=== PATIENT | male | born 1960 | race Caucasian/White ===

== ENCOUNTER 2020-01-09 18:32 | Emergency (ER) | payer OTHER ==
[~2020-01-09] VITALS: Ht 182.9 cm; Wt 113.0 kg
[2020-01-09] MEDS ORDERED: ALLO300T PO (19:06)
[2020-01-09] MEDS ORDERED: BENA40TA3 PO (19:06)
[2020-01-09] MEDS ORDERED: AMLO10TA8 PO (19:07)
[2020-01-09] MEDS ORDERED: ALPR0.5T7 PO (19:07)
[2020-01-09] MEDS ORDERED: DIPH,PERTUSS(ACELL),TET VAC/PF 0.5 ML IM-VACC ONE ×2 (19:24→19:30)
[2020-01-09] MEDS ORDERED: LIDOCAINE 1%-EPI 1:100K, 20ML ONE (19:24)
--- NOTE | 2020-01-09 19:28 | NUR ---
ASSUMED CARE FROM NOÉ GUZMAN. PT JUST RETURNED FROM IMAGING. PER , PT HAS BEEN DRINKING "HALF A BOTTLE" OF WHISKEY DAILY AND "ABOUT 6 BEERS A NIGHT" NAD NOTED IN PT AT THIS TIME. LIDO AND IRRIGATION SET UP AT BEDSIDE.
[2020-01-09 19:29] LABS: MEAN CORPUSCULAR HEMOGLOBIN 41.5 pg (27.5-34.5); MEAN CORPUSCULAR HGB CONC 34.3 g/dL (33.2-36.2); MEAN CORPUSCULAR VOLUME 120.9 fL (81-97); MEAN PLATELET VOLUME 7.7 fL (7.4-10.4); PLATELET COUNT 147 x10^3/uL (130-400); RED BLOOD COUNT 2.89 x10^6/uL (4.38-5.82); RED CELL DISTRIBUTION WIDTH 14.3 % (9.4-14.8)
[2020-01-09] MEDS ORDERED: SODIUM CHLORIDE 0.9% 1,000ML IVBOLUS ONE (19:30)
[2020-01-09] MEDS ORDERED: LIDOCAINE 1%-EPI 1:100K, 20ML SQ ONE (19:30)
[2020-01-09 19:31] LABS: BASOPHILS # (AUTO) 0.03 x10^3/uL (0-0.1); BASOPHILS % (AUTO) 1 % (0-1); EOSINOPHILS # (AUTO) 0.07 x10^3/uL (0-0.4); EOSINOPHILS % (AUTO) 1 % (1-7); LYMPHOCYTES # (AUTO) 1.41 x10^3/uL (1-3.4); LYMPHOCYTES % (AUTO) 25 % (22-44); MD MORPH REVIEW ONLY; MONOCYTES # (AUTO) 0.42 x10^3/uL (0.2-0.8); MONOCYTES % (AUTO) 8 % (2-9); NEUTROPHILS # (AUTO) 3.65 x10^3/uL (1.8-6.8)
[2020-01-09 19:34] LABS: ALBUMIN 2.9 g/dL (3.4-5.0); ANION GAP 16 mmol/L (5-15); CHLORIDE 95 mmol/L (98-107)
[2020-01-09 19:43] LABS: <PLATELET ESTIMATE> ADEQUATE; <PLT MORPHOLOGY> NORMAL PLT MORPH; ANISOCYTOSIS 1+; NEUTROPHILS % (AUTO) 65 % (42-75)
[2020-01-09] MEDS ORDERED: SODIUM CHLORIDE 0.9%, 500ML IVBOLUS ONE (20:30)
--- NOTE | 2020-01-09 20:59 | NUR ---
ANGY HICKMAN AT BEDSIDE FOR LAC REPAIR. PLAN FOR DC FOLLOWING FRANCIE. REPORT TO NOÉ MO.
[2020-01-09] MEDS ORDERED: NEOSPORIN OINT. PKT 1 PACKET ONE (21:18)
[2020-01-09 21:27] VITALS: BP 105/59
== END 2020-01-09 21:36 | disposition home or self-care (01) ==
LOC: ED 20:38
DX: S01.01XA Laceration without foreign body of scalp, initial encounter (principal); S06.9X1A Unspecified intracranial injury with loss of consciousness of 30 minutes or less, initial encounter; E86.0 Dehydration; I10 Essential (primary) hypertension; X58.XXXA Exposure to other specified factors, initial encounter; Y93.89 Activity, other specified; Y92.89 Other specified places as the place of occurrence of the external cause; Y99.8 Other external cause status
CPT/HCPCS: 12034; 36415; 70450; 80048; 82040; 85025; 90471; 90715; 93005; 96360; 96361; 99285; J7030

== ENCOUNTER 2020-03-03 15:49 | Outpatient (CLI) | payer OTHER ==
[~2020-03-03 15:49] MED LIST changes: +AMLO-211 PO; -AMLO10TA8 PO; -GADOTERATE 7.5 MMOL/15 ML VIAL ONE
== END 2020-03-03 23:59 | disposition home or self-care (01) ==
LOC: RAD 15:49
PROVIDERS: ATTEND Family Medicine
DX: Z02.9 Encounter for administrative examinations, unspecified (principal)

== ENCOUNTER → 2020-03-03 | Outpatient (CLI) | payer OTHER ==
[~2020-03-03] MED LIST: ALLO300T PO; ALPR0.5T7 PO; AMLO10TA8 PO; BENA40TA3 PO; GADOTERATE 7.5 MMOL/15 ML VIAL ONE
== END | disposition home or self-care (01) ==
LOC: RAD 16:05
PROVIDERS: ATTEND Family Medicine
DX: S06.2X9D Diffuse traumatic brain injury with loss of consciousness of unspecified duration, subsequent encounter (principal); S06.6X0D Traumatic subarachnoid hemorrhage without loss of consciousness, subsequent encounter; R26.81 Unsteadiness on feet; R41.0 Disorientation, unspecified; G31.89 Other specified degenerative diseases of nervous system; X58.XXXD Exposure to other specified factors, subsequent encounter
CPT/HCPCS: 70553; A9575

== ENCOUNTER → 2020-03-19 | Outpatient (CLI) | payer OTHER | END | disposition home or self-care (01) | LOC: RAD 09:01 | PROVIDERS: ATTEND Family Medicine | DX: R18.8 Other ascites (principal); N28.1 Cyst of kidney, acquired; R74.8 Abnormal levels of other serum enzymes | CPT/HCPCS: 76700 ==

== ENCOUNTER 2020-04-04 12:10 | Inpatient (IN) | payer OTHER ==
[~2020-04-04] VITALS: Ht 182.9 cm; Wt 128.6 kg
[2020-04-04] MEDS ORDERED: ONDANSETRON 2MG/ML, 2ML ONE (12:52)
[2020-04-04] MEDS ORDERED: MORPHINE SULFATE 4 MG/ML, 1ML ONE ×2 (12:53→16:52)
--- NOTE | 2020-04-04 12:56 | NUR ---
MEDICATED PER EMAR FOR PAIN/NAUSEA AT 10
[2020-04-04 13:02] LABS: BASOPHILS % (AUTO) 1 % (0-1); EOSINOPHILS % (AUTO) 0 % (1-7); LYMPHOCYTES % (AUTO) 6 % (22-44); MEAN CORPUSCULAR HEMOGLOBIN 41.8 pg (27.5-34.5); MEAN CORPUSCULAR HGB CONC 34.7 g/dL (33.2-36.2); MEAN PLATELET VOLUME 8.9 fL (7.4-10.4); MONOCYTES % (AUTO) 5 % (2-9); NEUTROPHILS % (AUTO) 87 % (42-75); PLATELET COUNT 116 x10^3/uL (130-400); RED BLOOD COUNT 2.21 x10^6/uL (4.38-5.82); RED CELL DISTRIBUTION WIDTH 14.5 % (9.4-14.8)
[2020-04-04 13:06] LABS: ALANINE AMINOTRANSFERASE 55 U/L (12-78); ALBUMIN 2.3 g/dL (3.4-5.0); ANION GAP 17 mmol/L (5-15); CALCIUM 6.6 mg/dL (8.5-10.1); CHLORIDE 94 mmol/L (98-107)
--- NOTE | 2020-04-04 13:06 | NUR ---
ecg and ultrasound at bedside
[2020-04-04 13:10] LABS: ALKALINE PHOSPHATASE 67 U/L (45-117); BILIRUBIN,TOTAL 0.8 mg/dL (0.2-1.0); TROPONIN I < 0.015 ng/mL (0.000-0.045)
[2020-04-04 13:30] LABS: MD SCAN
[2020-04-04 13:30] LABS: MICROSCOPIC AUTO
[2020-04-04] MEDS ORDERED: ONDANSETRON 2MG/ML, 2ML IVPush ONE (13:30)
[2020-04-04] MEDS ORDERED: MORPHINE SULFATE 4 MG/ML, 1ML IVPush PRN (13:30)
--- NOTE | 2020-04-04 13:30 | NUR ---
lab called to notify writer technical publications that bun 103-provider made aware- to admin 500ml of ems provider liter of normal saline
[2020-04-04] MEDS ORDERED: LEVO25TA4 PO (13:54)
[2020-04-04] MEDS ORDERED: BENA40TA3 PO (13:54)
[2020-04-04] MEDS ORDERED: CHOL10003 PO (13:54)
[2020-04-04] MEDS ORDERED: SPIR25TA5 PO (13:54)
--- NOTE | 2020-04-04 14:49 | NUR ---
RENAL ULTRASOUND AT BEDSIDE PROVIDED WITH ICE CHIPS PER PROVIDER WITH REPEAT ASSESSMENT- ALERT ORIENTED/PLEASANT. BLOOD PRESSURE SLIGHTLY IMPROVED TO SBP 100-110
[2020-04-04] MEDS ORDERED: SODIUM BICARBONATE 8.4% 150 MEQ in DEXTROSE 5% 1,000 ML IV SCH (15:30)
--- NOTE | 2020-04-04 16:14 | NUR ---
VOIDED 800ML OF DARK/SEDIMENTED URINE
[2020-04-04] MEDS ORDERED: ONDANSETRON 2MG/ML, 2ML IVPush PRN (16:30)
[2020-04-04] MEDS ORDERED: ONDANSETRON ODT 4 MG PO PRN (16:30)
[2020-04-04] MEDS ORDERED: HEPARIN 5,000 UNITS/ML, 1ML ONE (16:52)
[2020-04-04 17:01] LABS: HCT (SEDRATE) 26.6 % (39.2-51.8)
--- NOTE | 2020-04-04 17:09 | NUR ---
NEPHROLOGY AT BEDSIDE- Shakeel CEJA
[2020-04-04] MEDS: SODIUM BICARBONATE 8.4% 150 MEQ in DEXTROSE 5% 1,000 ML IV SCH (17:14)
[2020-04-04] MEDS: HEPARIN 5,000 UNITS/ML, 1ML SQ SCH (17:15)
[2020-04-04] MEDS: MORPHINE SULFATE 4 MG/ML, 1ML IVPush PRN (17:16)
[2020-04-04] MEDS ORDERED: PHARMACY MAY ADJ FOR RENAL FX MC PRN (17:30)
[2020-04-04] MEDS ORDERED: AMPICILLIN/SULBACTAM 3 GM in SODIUM CHLORIDE 0.9% 100 ML IV SCH (17:30)
--- NOTE | 2020-04-04 17:41 | NUR ---
MOVED TO HOSPITAL BED DIET ORDERED PER NEPHROLOGY
--- NOTE | 2020-04-04 17:55 | NUR ---
LAB AT BEDSIDE FOR LBLOOD CULTURES
--- NOTE | 2020-04-04 17:55 | NUR ---
UP TO COMMODE-VOIDED 100ML
[2020-04-04 18:21] LABS: ANION GAP 16 mmol/L (5-15); CALCIUM 6.7 mg/dL (8.5-10.1); CHLORIDE 95 mmol/L (98-107)
[2020-04-04] MEDS ORDERED: VITA1TAB19 PO (20:03)
[2020-04-04] MEDS ORDERED: ERGO500017 PO (20:12)
[2020-04-04 20:32] LABS: CHLORIDE,URINE RANDOM 65 mmol/L; POTASSIUM,URINE RANDOM 19 mmol/L; SODIUM,URINE RANDOM 70 mmol/L
[2020-04-04 20:47] LABS: CREATININE,URINE RANDOM 53.6 mg/dL
[2020-04-04 20:52] VITALS: BP 115/74
[2020-04-04] MEDS: AMPICILLIN/SULBACTAM 3 GM in SODIUM CHLORIDE 0.9% 100 ML IV SCH (20:55)
[2020-04-05 01:27] VITALS: BP 98/60
[2020-04-05] MEDS: HEPARIN 5,000 UNITS/ML, 1ML SQ SCH ×5 (01:37→23:16)
[2020-04-05] MEDS: SODIUM BICARBONATE 8.4% 150 MEQ in DEXTROSE 5% 1,000 ML IV SCH ×3 (02:35→21:05)
[2020-04-05 06:27] LABS: BASOPHILS % (AUTO) 1 % (0-1); EOSINOPHILS % (AUTO) 1 % (1-7); LYMPHOCYTES % (AUTO) 10 % (22-44); MEAN CORPUSCULAR HGB CONC 34.8 g/dL (33.2-36.2); MEAN PLATELET VOLUME 8.8 fL (7.4-10.4); MONOCYTES % (AUTO) 5 % (2-9); NEUTROPHILS % (AUTO) 83 % (42-75); PLATELET COUNT 100 x10^3/uL (130-400); RED BLOOD COUNT 1.81 x10^6/uL (4.38-5.82); RED CELL DISTRIBUTION WIDTH 14.4 % (9.4-14.8)
[2020-04-05 06:34] VITALS: BP 88/60
[2020-04-05 06:34] LABS: ALANINE AMINOTRANSFERASE 46 U/L (12-78); ALBUMIN 2.1 g/dL (3.4-5.0); ANION GAP 13 mmol/L (5-15); CALCIUM 6.5 mg/dL (8.5-10.1); CHLORIDE 94 mmol/L (98-107)
[2020-04-05 06:39] VITALS: BP 92/69
[2020-04-05 06:46] LABS: % IRON SATURATION 94 % (20-55); ALKALINE PHOSPHATASE 57 U/L (45-117); BILIRUBIN,TOTAL 0.7 mg/dL (0.2-1.0); CHOL/HDL RATIO 3.5; CHOLESTEROL, TOTAL 53 mg/dL (140-239); CREATINE KINASE, TOTAL 71 U/L (39-308); HDL CHOL % 28 % (26-37); HDL CHOLESTEROL (DIRECT) 15 mg/dL (40-60); IRON LEVEL 97 mcg/dL (65-175); LDL CHOLESTEROL,CALCULATED 30 mg/dL (54-169); TOTAL IRON BINDING CAPACITY 103 mcg/dL (250-450); TOTAL PROTEIN 6.2 g/dL (6.4-8.2); TRIGLYCERIDES 39 mg/dL (50-200); VLDL CHOLESTEROL 8 mg/dL (0-25)
[2020-04-05 07:11] LABS: MD SCAN
[2020-04-05] MEDS: LEVOTHYROXINE 25 MCG TABLET PO SCH (08:40)
[2020-04-05] MEDS: CHOLECALCIFEROL 1,000 UNIT TABLET PO SCH (08:40)
[2020-04-05] MEDS ORDERED: MAGNESIUM SULFATE PMX 2GM/50ML 50 ML IV ONE (10:00)
[2020-04-05 13:55] VITALS: BP 103/65
[2020-04-05] MEDS: AMPICILLIN/SULBACTAM 3 GM in SODIUM CHLORIDE 0.9% 100 ML IV SCH (20:09)
[2020-04-05 20:12] VITALS: BP 91/54
[2020-04-05] MEDS ORDERED: NICOTINE 7 MG/24 HR PATCH.TD24 TD SCH (21:30)
[2020-04-05] MEDS: SODIUM CHLORIDE 0.9% 1,000 ML IV SCH (23:30)
[2020-04-06 00:20] VITALS: BP 95/55
[2020-04-06 06:17] LABS: ANION GAP 18 mmol/L (5-15); CALCIUM 6.7 mg/dL (8.5-10.1); CHLORIDE 92 mmol/L (98-107)
[2020-04-06 06:23] LABS: INTERNATIONAL NORMALIZED RATIO 1.4 (0.93-1.1); PROTHROMBIN TIME 14.8 Seconds (9.6-11.5)
[2020-04-06 06:58] VITALS: BP 96/56
[2020-04-06 07:18] LABS: BASOPHILS % (AUTO) 0 % (0-1); EOSINOPHILS % (AUTO) 1 % (1-7); LYMPHOCYTES % (AUTO) 7 % (22-44); MEAN CORPUSCULAR HEMOGLOBIN 41.7 pg (27.5-34.5); MEAN CORPUSCULAR HGB CONC 34.2 g/dL (33.2-36.2); MEAN PLATELET VOLUME 8.5 fL (7.4-10.4); MONOCYTES % (AUTO) 6 % (2-9); NEUTROPHILS % (AUTO) 86 % (42-75); PLATELET COUNT 98 x10^3/uL (130-400); RED BLOOD COUNT 1.87 x10^6/uL (4.38-5.82); RED CELL DISTRIBUTION WIDTH 14.4 % (9.4-14.8)
[2020-04-06 07:38] LABS: MD SCAN
[2020-04-06] MEDS: LEVOTHYROXINE 25 MCG TABLET PO SCH (09:06)
[2020-04-06] MEDS: MORPHINE SULFATE 4 MG/ML, 1ML IVPush PRN (09:54)
[2020-04-06] MEDS: CHOLECALCIFEROL 1,000 UNIT TABLET PO SCH (09:55)
[2020-04-06] MEDS: DOCUSATE 100 MG CAPSULE PO SCH ×2 (10:30→21:04)
[2020-04-06] MEDS: NICOTINE 14MG/24 HR PATCH.TD24 TD SCH (11:45)
[2020-04-06 12:08] VITALS: BP 97/64
[2020-04-06] MEDS: SODIUM CHLORIDE 0.9% 1,000 ML IV SCH (12:50)
[2020-04-06] MEDS ORDERED: ALBUMIN HUMAN 25% 50 ML IV PRN (14:00)
[2020-04-06] MEDS ORDERED: ALBUMIN HUMAN 25% 100 ML IV PRN (14:00)
[2020-04-06] MEDS: HEPARIN 5,000 UNITS/ML, 1ML SQ SCH (17:00)
[2020-04-06 20:01] VITALS: BP 110/70
[2020-04-06] MEDS: MIDODRINE 2.5 MG TABLET PO SCH (21:04)
[2020-04-06] MEDS: AMPICILLIN/SULBACTAM 3 GM in SODIUM CHLORIDE 0.9% 100 ML IV SCH (21:05)
[2020-04-07] MEDS: HEPARIN 5,000 UNITS/ML, 1ML SQ SCH ×3 (00:40→16:43)
[2020-04-07 01:18] VITALS: BP 88/52
[2020-04-07 04:30] VITALS: BP 112/69
[2020-04-07 04:57] LABS: BASOPHILS % (AUTO) 0 % (0-1); EOSINOPHILS % (AUTO) 1 % (1-7); LYMPHOCYTES % (AUTO) 7 % (22-44); MEAN CORPUSCULAR HEMOGLOBIN 41.4 pg (27.5-34.5); MEAN PLATELET VOLUME 8.8 fL (7.4-10.4); MONOCYTES % (AUTO) 8 % (2-9); NEUTROPHILS % (AUTO) 84 % (42-75); PLATELET COUNT 85 x10^3/uL (130-400); RED BLOOD COUNT 1.72 x10^6/uL (4.38-5.82); RED CELL DISTRIBUTION WIDTH 14.5 % (9.4-14.8)
[2020-04-07 05:08] LABS: ANION GAP 13 mmol/L (5-15); CALCIUM 6.9 mg/dL (8.5-10.1); CHLORIDE 94 mmol/L (98-107)
[2020-04-07 06:16] VITALS: BP 130/80
[2020-04-07 06:36] LABS: MD NO
[2020-04-07] MEDS: DOCUSATE 100 MG CAPSULE PO SCH ×2 (07:55→21:35)
[2020-04-07] MEDS: LEVOTHYROXINE 25 MCG TABLET PO SCH (07:55)
[2020-04-07] MEDS: CHOLECALCIFEROL 1,000 UNIT TABLET PO SCH (07:55)
[2020-04-07 10:47] VITALS: BP 93/56
[2020-04-07] MEDS: NICOTINE 14MG/24 HR PATCH.TD24 TD SCH (10:48)
[2020-04-07] MEDS: MIDODRINE 2.5 MG TABLET PO SCH ×2 (10:48→21:35)
[2020-04-07 12:00] VITALS: BP 100/60
[2020-04-07] MEDS: MORPHINE SULFATE 4 MG/ML, 1ML IVPush PRN ×2 (12:33→16:43)
[2020-04-07 19:42] VITALS: BP 118/76
[2020-04-07] MEDS: AMPICILLIN/SULBACTAM 3 GM in SODIUM CHLORIDE 0.9% 100 ML IV SCH (21:35)
[2020-04-08] MEDS: HEPARIN 5,000 UNITS/ML, 1ML SQ SCH ×3 (01:00→17:26)
[2020-04-08 01:29] VITALS: BP 106/70
[2020-04-08 06:06] LABS: ALBUMIN 2.3 g/dL (3.4-5.0); ANION GAP 9 mmol/L (5-15); CALCIUM 7.7 mg/dL (8.5-10.1); CHLORIDE 96 mmol/L (98-107); CREATININE 6.17 mg/dL (0.7-1.3)
[2020-04-08 06:10] LABS: BASOPHILS % (AUTO) 0 % (0-1); EOSINOPHILS % (AUTO) 1 % (1-7); LYMPHOCYTES % (AUTO) 6 % (22-44); MEAN CORPUSCULAR HEMOGLOBIN 41.5 pg (27.5-34.5); MEAN CORPUSCULAR HGB CONC 34.4 g/dL (33.2-36.2); MEAN PLATELET VOLUME 8.7 fL (7.4-10.4); MONOCYTES % (AUTO) 9 % (2-9); NEUTROPHILS % (AUTO) 84 % (42-75); PLATELET COUNT 82 x10^3/uL (130-400); RED BLOOD COUNT 1.76 x10^6/uL (4.38-5.82)
[2020-04-08 06:17] LABS: MD NO
[2020-04-08 07:36] VITALS: BP 110/73
[2020-04-08] MEDS: LEVOTHYROXINE 25 MCG TABLET PO SCH (09:24)
[2020-04-08] MEDS: DOCUSATE 100 MG CAPSULE PO SCH ×2 (09:24→19:34)
[2020-04-08] MEDS: MIDODRINE 2.5 MG TABLET PO SCH ×2 (09:24→19:34)
[2020-04-08] MEDS: CHOLECALCIFEROL 1,000 UNIT TABLET PO SCH (09:24)
[2020-04-08] MEDS: NICOTINE 14MG/24 HR PATCH.TD24 TD SCH (09:25)
[2020-04-08] MEDS: MORPHINE SULFATE 4 MG/ML, 1ML IVPush PRN (09:25)
[2020-04-08 12:09] VITALS: BP 100/64
[2020-04-08] MEDS: OXYcodone IR 5MG TABLET PO PRN (17:27)
[2020-04-08 18:59] VITALS: BP 115/64
[2020-04-08] MEDS: AMPICILLIN/SULBACTAM 3 GM in SODIUM CHLORIDE 0.9% 100 ML IV SCH (20:15)
[2020-04-09] VITALS (10 sets, daily range): BP systolic 103–118; BP diastolic 62–80
[2020-04-09] MEDS: AMPICILLIN/SULBACTAM 3 GM in SODIUM CHLORIDE 0.9% 100 ML IV SCH (00:17)
[2020-04-09] MEDS: OXYcodone IR 5MG TABLET PO PRN ×4 (00:26→20:38)
[2020-04-09] MEDS: HEPARIN 5,000 UNITS/ML, 1ML SQ SCH ×3 (00:26→17:21)
[2020-04-09 05:48] LABS: MEAN CORPUSCULAR HEMOGLOBIN 41.4 pg (27.5-34.5); MEAN CORPUSCULAR HGB CONC 34.2 g/dL (33.2-36.2); MEAN PLATELET VOLUME 8.7 fL (7.4-10.4); PLATELET COUNT 73 x10^3/uL (130-400); RED BLOOD COUNT 1.62 x10^6/uL (4.38-5.82); RED CELL DISTRIBUTION WIDTH 14.3 % (9.4-14.8)
[2020-04-09 05:50] LABS: ALANINE AMINOTRANSFERASE 49 U/L (12-78); ALBUMIN 2.2 g/dL (3.4-5.0); ANION GAP 8 mmol/L (5-15); CALCIUM 7.8 mg/dL (8.5-10.1); CHLORIDE 99 mmol/L (98-107); CREATININE 4.41 mg/dL (0.7-1.3)
[2020-04-09 05:53] LABS: ALKALINE PHOSPHATASE 82 U/L (45-117); BILIRUBIN,TOTAL 0.9 mg/dL (0.2-1.0); TOTAL PROTEIN 6.1 g/dL (6.4-8.2)
[2020-04-09 06:27] LABS: MD YES
[2020-04-09 06:29] LABS: ANISOCYTOSIS 1+; BASOS#(MANUAL) 0.08 x10^3/uL (0-0.1); BASOS% (MANUAL) 1 % (0-1); EOS% (MANUAL) 6 % (1-7); LYMPH#(MANUAL) 1.41 x10^3/uL (1-3.4); LYMPHS% (MANUAL) 17 % (22-44); MONOS#(MANUAL) 0.66 x10^3/uL (0.3-2.7); MONOS% (MANUAL) 8 % (2-9); SEG#(MANUAL) 5.64 x10^3/uL (1.8-6.8); SEGS% (MANUAL) 68 % (42-75)
[2020-04-09 06:30] LABS: <PLATELET ESTIMATE> DECREASED; <PLT MORPHOLOGY> NORMAL PLT MORPH; POLYCHROMASIA 1+
[2020-04-09] MEDS: DOCUSATE 100 MG CAPSULE PO SCH ×2 (09:58→20:32)
[2020-04-09] MEDS: NICOTINE 14MG/24 HR PATCH.TD24 TD SCH (09:58)
[2020-04-09] MEDS: LEVOTHYROXINE 25 MCG TABLET PO SCH (09:58)
[2020-04-09] MEDS: CHOLECALCIFEROL 1,000 UNIT TABLET PO SCH (09:58)
[2020-04-09] MEDS: MIDODRINE 2.5 MG TABLET PO SCH ×2 (09:59→20:33)
[2020-04-10] MEDS: HEPARIN 5,000 UNITS/ML, 1ML SQ SCH ×3 (00:24→16:54)
[2020-04-10 01:59] VITALS: BP 136/66
[2020-04-10] MEDS: OXYcodone IR 5MG TABLET PO PRN ×3 (02:01→18:27)
[2020-04-10 08:00] VITALS: BP 123/76
[2020-04-10] MEDS: DOCUSATE 100 MG CAPSULE PO SCH ×2 (09:00→21:37)
[2020-04-10] MEDS: MIDODRINE 2.5 MG TABLET PO SCH ×2 (09:00→21:37)
[2020-04-10] MEDS: LEVOTHYROXINE 25 MCG TABLET PO SCH (09:07)
[2020-04-10] MEDS: CHOLECALCIFEROL 1,000 UNIT TABLET PO SCH (09:10)
[2020-04-10] MEDS: NICOTINE 21 MG/24 HR PATCH.TD24 TD SCH (09:20)
[2020-04-10 10:18] LABS: BASOPHILS % (AUTO) 1 % (0-1); EOSINOPHILS % (AUTO) 4 % (1-7); LYMPHOCYTES % (AUTO) 15 % (22-44); MEAN CORPUSCULAR HEMOGLOBIN 40.9 pg (27.5-34.5); MEAN CORPUSCULAR HGB CONC 35.1 g/dL (33.2-36.2); MEAN PLATELET VOLUME 8.2 fL (7.4-10.4); MONOCYTES % (AUTO) 12 % (2-9); NEUTROPHILS % (AUTO) 68 % (42-75); PLATELET COUNT 96 x10^3/uL (130-400); RED BLOOD COUNT 1.95 x10^6/uL (4.38-5.82); RED CELL DISTRIBUTION WIDTH 16.3 % (9.4-14.8)
[2020-04-10 10:23] LABS: ANION GAP 8 mmol/L (5-15); CALCIUM 8.1 mg/dL (8.5-10.1); CHLORIDE 94 mmol/L (98-107); CREATININE 4.51 mg/dL (0.7-1.3)
[2020-04-10 10:38] LABS: MD MORPH REVIEW ONLY
[2020-04-10 10:39] LABS: <PLATELET ESTIMATE> DECREASED; <PLT MORPHOLOGY> NORMAL PLT MORPH; ANISOCYTOSIS 1+; POLYCHROMASIA 1+
[2020-04-10 14:00] VITALS: BP 103/60
[2020-04-10 19:28] VITALS: BP 130/58
[2020-04-10] MEDS: AMPICILLIN/SULBACTAM 3 GM in SODIUM CHLORIDE 0.9% 100 ML IV SCH ×2 (21:37)
[2020-04-11] MEDS: HEPARIN 5,000 UNITS/ML, 1ML SQ SCH ×3 (00:38→16:36)
[2020-04-11 01:41] VITALS: BP 136/64
[2020-04-11 06:58] VITALS: BP 109/69
[2020-04-11 07:05] LABS: BASOPHILS % (AUTO) 1 % (0-1); EOSINOPHILS % (AUTO) 3 % (1-7); LYMPHOCYTES % (AUTO) 10 % (22-44); MEAN CORPUSCULAR HEMOGLOBIN 40.5 pg (27.5-34.5); MEAN CORPUSCULAR HGB CONC 34.8 g/dL (33.2-36.2); MEAN PLATELET VOLUME 8.4 fL (7.4-10.4); MONOCYTES % (AUTO) 11 % (2-9); NEUTROPHILS % (AUTO) 76 % (42-75); PLATELET COUNT 104 x10^3/uL (130-400); RED BLOOD COUNT 1.93 x10^6/uL (4.38-5.82)
[2020-04-11 07:09] LABS: ANION GAP 7 mmol/L (5-15); CALCIUM 7.8 mg/dL (8.5-10.1); CHLORIDE 94 mmol/L (98-107); CREATININE 4.23 mg/dL (0.7-1.3)
[2020-04-11] MEDS: CHOLECALCIFEROL 1,000 UNIT TABLET PO SCH (08:18)
[2020-04-11] MEDS: LEVOTHYROXINE 25 MCG TABLET PO SCH (08:18)
[2020-04-11] MEDS: NICOTINE 21 MG/24 HR PATCH.TD24 TD SCH (08:19)
[2020-04-11] MEDS: DOCUSATE 100 MG CAPSULE PO SCH ×2 (08:20→20:43)
[2020-04-11] MEDS: MIDODRINE 2.5 MG TABLET PO SCH ×2 (08:21→20:43)
[2020-04-11] MEDS: OXYcodone IR 5MG TABLET PO PRN ×2 (08:25→17:09)
[2020-04-11 09:25] LABS: MD SCAN
[2020-04-11 09:40] LABS: INTERNATIONAL NORMALIZED RATIO 1.41 (0.93-1.1); PROTHROMBIN TIME 14.9 Seconds (9.6-11.5)
[2020-04-11 12:47] VITALS: BP 149/82
[2020-04-11] MEDS ORDERED: FLUMAZENIL 0.1 MG/1 ML, 5ML ONE (13:28)
[2020-04-11] MEDS ORDERED: FENTANYL PF 100 MCG/2ML ONE (13:28)
[2020-04-11] MEDS ORDERED: MIDAZOLAM 1 MG/ML, 5ML ONE (13:28)
[2020-04-11] MEDS ORDERED: NALOXONE 1 MG/ML, 2ML ONE (13:29)
[2020-04-11] MEDS ORDERED: LIDOCAINE 1%, 10ML ONE ×2 (13:39→14:19)
[2020-04-11] MEDS: AMPICILLIN/SULBACTAM 3 GM in SODIUM CHLORIDE 0.9% 100 ML IV SCH (17:09)
[2020-04-11 18:21] VITALS: BP 142/78
[2020-04-11 20:41] VITALS: BP 103/69
[2020-04-12] MEDS: HEPARIN 5,000 UNITS/ML, 1ML SQ SCH ×3 (01:32→17:30)
[2020-04-12] MEDS: OXYcodone IR 5MG TABLET PO PRN ×2 (01:33→17:31)
[2020-04-12 02:00] VITALS: BP 138/72
[2020-04-12] MEDS: AMPICILLIN/SULBACTAM 3 GM in SODIUM CHLORIDE 0.9% 100 ML IV SCH ×2 (05:23→17:31)
[2020-04-12 05:57] LABS: BASOPHILS % (AUTO) 1 % (0-1); EOSINOPHILS % (AUTO) 3 % (1-7); LYMPHOCYTES % (AUTO) 14 % (22-44); MEAN CORPUSCULAR HEMOGLOBIN 40.5 pg (27.5-34.5); MEAN CORPUSCULAR HGB CONC 34.8 g/dL (33.2-36.2); MEAN PLATELET VOLUME 8.4 fL (7.4-10.4); MONOCYTES % (AUTO) 10 % (2-9); NEUTROPHILS % (AUTO) 72 % (42-75); PLATELET COUNT 116 x10^3/uL (130-400); RED BLOOD COUNT 1.85 x10^6/uL (4.38-5.82); RED CELL DISTRIBUTION WIDTH 16.1 % (9.4-14.8)
[2020-04-12 06:04] LABS: ANION GAP 7 mmol/L (5-15); CALCIUM 7.6 mg/dL (8.5-10.1); CHLORIDE 95 mmol/L (98-107); CREATININE 3.63 mg/dL (0.7-1.3)
[2020-04-12 07:11] VITALS: BP 114/69
[2020-04-12 07:14] LABS: MD SCAN
[2020-04-12] MEDS: MIDODRINE 2.5 MG TABLET PO SCH ×2 (09:00→21:00)
[2020-04-12] MEDS: CHOLECALCIFEROL 1,000 UNIT TABLET PO SCH (09:26)
[2020-04-12] MEDS: DOCUSATE 100 MG CAPSULE PO SCH ×2 (09:27→21:48)
[2020-04-12] MEDS: LEVOTHYROXINE 25 MCG TABLET PO SCH (09:27)
[2020-04-12] MEDS: NICOTINE 21 MG/24 HR PATCH.TD24 TD SCH (09:27)
[2020-04-12 13:42] VITALS: BP 140/65
[2020-04-12 14:01] LABS: INTERNATIONAL NORMALIZED RATIO 1.44 (0.93-1.1); PROTHROMBIN TIME 15.2 Seconds (9.6-11.5)
[2020-04-12] MEDS ORDERED: POTASSIUM CHLORIDE 20 MEQ TAB.ER.PRT PO ONE (17:00)
[2020-04-12 18:35] VITALS: BP 106/70
[2020-04-13 00:17] VITALS: BP 107/67
[2020-04-13] MEDS: HEPARIN 5,000 UNITS/ML, 1ML SQ SCH ×3 (00:42→18:18)
[2020-04-13] MEDS: OXYcodone IR 5MG TABLET PO PRN ×3 (00:43→18:18)
[2020-04-13] MEDS: AMPICILLIN/SULBACTAM 3 GM in SODIUM CHLORIDE 0.9% 100 ML IV SCH (04:54)
[2020-04-13 06:07] LABS: BASOPHILS % (AUTO) 1 % (0-1); EOSINOPHILS % (AUTO) 4 % (1-7); LYMPHOCYTES % (AUTO) 8 % (22-44); MEAN CORPUSCULAR HEMOGLOBIN 40.5 pg (27.5-34.5); MEAN CORPUSCULAR HGB CONC 34.8 g/dL (33.2-36.2); MEAN PLATELET VOLUME 8.6 fL (7.4-10.4); MONOCYTES % (AUTO) 17 % (2-9); NEUTROPHILS % (AUTO) 70 % (42-75); PLATELET COUNT 131 x10^3/uL (130-400); RED BLOOD COUNT 1.85 x10^6/uL (4.38-5.82); RED CELL DISTRIBUTION WIDTH 16.7 % (9.4-14.8)
[2020-04-13 06:12] LABS: MD NO
[2020-04-13 06:18] LABS: ANION GAP 12 mmol/L (5-15); CALCIUM 7.5 mg/dL (8.5-10.1); CHLORIDE 96 mmol/L (98-107)
[2020-04-13 06:21] LABS: CREATININE 3.28 mg/dL (0.7-1.3)
[2020-04-13 06:50] VITALS: BP 132/73
[2020-04-13] MEDS: MIDODRINE 2.5 MG TABLET PO SCH ×2 (09:00→22:35)
[2020-04-13] MEDS: NICOTINE 21 MG/24 HR PATCH.TD24 TD SCH (09:43)
[2020-04-13] MEDS: CHOLECALCIFEROL 1,000 UNIT TABLET PO SCH (09:43)
[2020-04-13] MEDS: TORSEMIDE 20 MG TABLET PO SCH (09:43)
[2020-04-13] MEDS: LEVOTHYROXINE 25 MCG TABLET PO SCH (09:44)
[2020-04-13] MEDS: DOCUSATE 100 MG CAPSULE PO SCH ×2 (09:44→22:35)
[2020-04-13 12:20] VITALS: BP 130/85
[2020-04-13 20:24] VITALS: BP 131/76
[2020-04-14 00:27] VITALS: BP 137/80
[2020-04-14] MEDS: HEPARIN 5,000 UNITS/ML, 1ML SQ SCH ×3 (01:01→17:33)
[2020-04-14] MEDS: OXYcodone IR 5MG TABLET PO PRN (03:47)
[2020-04-14 06:00] LABS: ANION GAP 8 mmol/L (5-15); CALCIUM 7.4 mg/dL (8.5-10.1); CHLORIDE 95 mmol/L (98-107); CREATININE 2.86 mg/dL (0.7-1.3)
[2020-04-14 06:38] LABS: MEAN CORPUSCULAR HGB CONC 34.6 g/dL (33.2-36.2)
[2020-04-14 07:27] VITALS: BP 143/74
[2020-04-14 07:52] LABS: BASOPHILS % (AUTO) 1 % (0-1); EOSINOPHILS % (AUTO) 4 % (1-7); LYMPHOCYTES % (AUTO) 15 % (22-44); MEAN CORPUSCULAR HEMOGLOBIN 40.5 pg (27.5-34.5); MEAN PLATELET VOLUME 8.8 fL (7.4-10.4); MONOCYTES % (AUTO) 23 % (2-9); NEUTROPHILS % (AUTO) 57 % (42-75); PLATELET COUNT 135 x10^3/uL (130-400); RED BLOOD COUNT 1.89 x10^6/uL (4.38-5.82); RED CELL DISTRIBUTION WIDTH 16.2 % (9.4-14.8)
[2020-04-14 08:02] LABS: MD NO
[2020-04-14] MEDS: LEVOTHYROXINE 25 MCG TABLET PO SCH (10:11)
[2020-04-14] MEDS: CHOLECALCIFEROL 1,000 UNIT TABLET PO SCH (10:11)
[2020-04-14] MEDS: TORSEMIDE 20 MG TABLET PO SCH (10:12)
[2020-04-14] MEDS: MIDODRINE 2.5 MG TABLET PO SCH (10:12)
[2020-04-14] MEDS: DOCUSATE 100 MG CAPSULE PO SCH ×2 (10:12→20:18)
[2020-04-14] MEDS: NICOTINE 21 MG/24 HR PATCH.TD24 TD SCH (10:13)
[2020-04-14 13:25] VITALS: BP 125/71
[2020-04-14] MEDS ORDERED: HEPARIN 25,000 UNITS/250ML PMX 250 ML ONE (15:40)
[2020-04-14 19:59] VITALS: BP 143/79
[2020-04-15] MEDS: HEPARIN 5,000 UNITS/ML, 1ML SQ SCH ×3 (00:52→17:12)
[2020-04-15 01:40] VITALS: BP 137/82
[2020-04-15 05:03] LABS: ANION GAP 9 mmol/L (5-15); CALCIUM 7.6 mg/dL (8.5-10.1); CHLORIDE 96 mmol/L (98-107); CREATININE 2.44 mg/dL (0.7-1.3)
[2020-04-15] MEDS: LEVOTHYROXINE 25 MCG TABLET PO SCH (06:29)
[2020-04-15 09:31] VITALS: BP 149/66
[2020-04-15] MEDS: POTASSIUM CHLORIDE 20 MEQ TAB.ER.PRT PO SCH ×2 (09:40→17:12)
[2020-04-15] MEDS: CHOLECALCIFEROL 1,000 UNIT TABLET PO SCH (09:40)
[2020-04-15] MEDS: TORSEMIDE 20 MG TABLET PO SCH (09:40)
[2020-04-15] MEDS: DOCUSATE 100 MG CAPSULE PO SCH (09:40)
[2020-04-15] MEDS: NICOTINE 21 MG/24 HR PATCH.TD24 TD SCH (09:41)
[2020-04-15 14:10] VITALS: BP 117/77
[2020-04-15] MEDS ORDERED: POTA20TA6 PO (16:14)
[2020-04-15] MEDS ORDERED: TORS20TA2 PO (16:14)
== END 2020-04-15 18:32 | disposition home or self-care (01) | DRG 683 ==
LOC: ED 14:12 → EDIP 15:15 → 4WST 19:30
PROVIDERS: ADMIT Internal Medicine; ATTEND Hospitalist
PROC: 02HV33Z Insertion of Infusion Device into Superior Vena Cava, Percutaneous Approach (ICD-10-PCS; 2020-04-06)
PROC: B548ZZA Ultrasonography of Superior Vena Cava, Guidance (ICD-10-PCS; 2020-04-06)
PROC: B5181ZA Fluoroscopy of Superior Vena Cava using Low Osmolar Contrast, Guidance (ICD-10-PCS; 2020-04-06)
PROC: 30233N1 Transfusion of Nonautologous Red Blood Cells into Peripheral Vein, Percutaneous Approach (ICD-10-PCS; 2020-04-09)
PROC: 07DR3ZX Extraction of Iliac Bone Marrow, Percutaneous Approach, Diagnostic (ICD-10-PCS; principal; 2020-04-11)
DX: N17.0 Acute kidney failure with tubular necrosis (principal); L03.115 Cellulitis of right lower limb; E87.1 Hypo-osmolality and hyponatremia; L03.116 Cellulitis of left lower limb; E87.2 Acidosis; E83.51 Hypocalcemia; E11.65 Type 2 diabetes mellitus with hyperglycemia; E03.9 Hypothyroidism, unspecified; D69.6 Thrombocytopenia, unspecified; D63.1 Anemia in chronic kidney disease; D53.9 Nutritional anemia, unspecified; F10.10 Alcohol abuse, uncomplicated; F41.9 Anxiety disorder, unspecified; E87.6 Hypokalemia; K74.60 Unspecified cirrhosis of liver; K76.0 Fatty (change of) liver, not elsewhere classified; M10.9 Gout, unspecified; N18.9 Chronic kidney disease, unspecified; Z72.0 Tobacco use; I95.9 Hypotension, unspecified; R19.7 Diarrhea, unspecified
CPT/HCPCS: 36415; 77001; 84155; 84156; 96374; 96375; 99291; J3490; 36430; 36556; 38222; 50200; 71045; 76700; 76770; 77012; 80048; 80053; 80061; 80069; 81001; 82140; 82306; 82436; 82550; 82570; 82728; 83036; 83540; 83550; 83735; 83880; 83883; 83930; 83935; 83970; 84100; 84133; 84165; 84166; 84300; 84443; 84484; 85025; 85060; 85097; 85610; 85651; 85730; 86335; 86704; 86706; 86850; 86900; 86923; 87040; 87340; 88300; 88305; 88311; 88313; 88341; 90935; 93005; 93306; 93970; 99156; 99157; G0378; J0295; J1644; J2250; J2405; J3010; J7070; P9047; 92522-GN; C1751; J1642; J2270; J2310; J3475; J7030; P9016